=== PATIENT | male | born 1955 | race Two or more races ===

== ENCOUNTER 2017-04-02 07:30 | Emergency (ER) | payer OTHER ==
[~2017-04-02] VITALS: Ht 170.2 cm; Wt 85.0 kg
[2017-04-02] MEDS ORDERED: KETOROLAC 60MG/2ML VIAL IM ONE (08:30)
[2017-04-02 09:42] VITALS: BP 144/91
== END 2017-04-02 11:00 | disposition home or self-care (01) ==
LOC: ER 07:35
DX: S40.012A Contusion of left shoulder, initial encounter (principal); S30.0XXA Contusion of lower back and pelvis, initial encounter; S20.229A Contusion of unspecified back wall of thorax, initial encounter; V03.90XA Pedestrian on foot injured in collision with car, pick-up truck or van, unspecified whether traffic or nontraffic accident, initial encounter; Y93.01 Activity, walking, marching and hiking; Y92.410 Unspecified street and highway as the place of occurrence of the external cause; I10 Essential (primary) hypertension; E11.9 Type 2 diabetes mellitus without complications
CPT/HCPCS: 72070; 72100; 73030; 73060; 96372; 99284; J1885; Z7610